=== PATIENT | female | born 1990 | race Caucasian/White ===

== ENCOUNTER 2018-03-23 15:28 | Inpatient (IN) | payer OTHER ==
[~2018-03-23] VITALS: Ht 167.6 cm; Wt 77.1 kg
[2018-03-23 16:56] VITALS: BP 127/76
[2018-03-23] MEDS ORDERED: NALBUPHINE 10 MG/ML AMP IVP PRN (20:10)
[2018-03-23] MEDS ORDERED: PROMETHAZINE 25 MG/ML VIAL IVP PRN (20:10)
[2018-03-23] MEDS ORDERED: MISOPROSTOL 25 MCG TAB VG PRN (20:15)
[2018-03-23] MEDS ORDERED: LACTATED RINGERS 500 ML IV SCH (20:30)
[2018-03-23] MEDS ORDERED: LACTATED RINGERS 1,000 ML IV SCH (20:30)
[2018-03-23] MEDS ORDERED: OXYTOCIN 10 UNITS/ML VIAL IM SCH (21:00)
[2018-03-23] MEDS ORDERED: OXYTOCIN 20 UNITS in LACTATED RINGERS 1,000 ML IV SCH (21:00)
[2018-03-23 21:21] LABS: APPEARANCE,URINE CLEAR (CLEAR); BILIRUBIN,URINE NEGATIVE (NEGATIVE); BLOOD, URINE 3+ (NEGATIVE); COLOR,URINE YELLOW (YELLOW); LEUKOCYTE ESTERASE ,URINE NEGATIVE (NEGATIVE); NITRITE, URINE NEGATIVE (NEGATIVE); PH,URINE 6.5 (5.0-9.0); UGLUCOSE NEGATIVE (NEGATIVE)
[2018-03-23 21:23] LABS: RBC,URINE 20-50 /HPF (0-5); WBC,URINE 0-5 (RARE) /HPF (0-5)
[2018-03-23 21:24] LABS: BASOPHILS % (AUTO) 0.2 % (0.0-2.0); EOSINOPHILS % (AUTO) 0.2 % (0.0-4.0); HEMATOCRIT 38.7 % (36-48); LYMPHOCYTES # (AUTO) 2.5 K/uL (2.5-16.5); LYMPHOCYTES % (AUTO) 28.4 % (20.5-51.1); MEAN CORPUSCULAR HEMOGLOBIN 32 pg (27-31); MEAN CORPUSCULAR HGB CONC 34 g/dL (33-37); MEAN CORPUSCULAR VOLUME 93.8 fL (80-94); MONOCYTES # (AUTO) 0.5 K/uL (0.8-1.0); MONOCYTES % (AUTO) 5.6 % (1.7-9.3); NEUTROPHILS # (AUTO) 5.8 K/uL (1.8-7.7); NEUTROPHILS % (AUTO) 65.6 % (42.2-75.2); PLATELET COUNT (AUTO) 94 K/uL (140-450); RED BLOOD CELL COUNT(AUTO) 4.13 MIL/uL (4.20-5.40); RED CELL DISTRIBUTION WIDTH 13.3 % (11.6-13.7); WHITE BLOOD COUNT (AUTO) 8.9 K/uL (4.8-10.8)
[2018-03-23] MEDS ORDERED: MISOPROSTOL 25 MCG TAB ONE (21:35)
[2018-03-23] MEDS ORDERED: PREN-546 PO (22:46)
[2018-03-24] MEDS ORDERED: MISOPROSTOL 25 MCG TAB ONE (02:13)
[2018-03-24] MEDS ORDERED: OXYTOCIN 20 UNITS/LR PREMIX 1,000 ML IV ONE (02:21)
[2018-03-24] MEDS ORDERED: PROMETHAZINE 25 MG/ML VIAL ONE (02:35)
[2018-03-24] MEDS ORDERED: NALBUPHINE 10 MG/ML AMP ONE (02:35)
[2018-03-24] MEDS ORDERED: OXYTOCIN 10 UNITS/ML VIAL ONE (05:09)
--- NOTE | 2018-03-24 11:28 | NUR ---
PATIENT HAS BEEN SCREENED AND CATEGORIZED LOW NUTRITION RISK. PATIENT WILL BE SEEN WITHIN 7 DAYS OF ADMISSION. 03/30/[address]
[2018-03-24] MEDS ORDERED: OXYTOCIN 10 UNITS/ML VIAL IM PRN (20:10)
[2018-03-24] MEDS ORDERED: IBUPROFEN 800 MG TAB PO PRN (20:10)
[2018-03-24] MEDS ORDERED: MEASLES, MUMPS, AND RUBELLA 1 VIAL SQVAC PRN (20:10)
[2018-03-24] MEDS ORDERED: METHYLERGONOVINE 0.2 MG TAB PO PRN (20:10)
[2018-03-24] MEDS ORDERED: oxyCODONE/APAP 5/325 MG 1 TAB TAB PO PRN (20:10)
[2018-03-24] MEDS ORDERED: BENZOCAINE/MENTHOL 20%-0.5% 60 GM CAN TP PRN (20:10)
[2018-03-24] MEDS ORDERED: HYDROcodone/APAP 5/325 MG 1 TAB TAB PO PRN (20:10)
[2018-03-24] MEDS ORDERED: METHYLERGONOVINE 0.2 MG/ML AMP IM PRN (20:10)
[2018-03-24] MEDS ORDERED: TEMAZEPAM 15 MG CAP PO PRN (20:10)
[2018-03-24] MEDS ORDERED: DOCUSATE SOD/SENNA 50/8.6 MG 1 TAB PO SCH (21:00)
[2018-03-25 06:48] LABS: HEMATOCRIT 36.1 % (36-48); HEMOGLOBIN 12.1 g/dL (12.0-16.0)
[2018-03-25] MEDS ORDERED: DOCUSATE SOD/SENNA 50/8.6 MG 1 TAB PO SCH (21:00)
== END 2018-03-26 14:35 | disposition home or self-care (01) | DRG 560 ==
LOC: MLD 15:28 → UNDOADMOB 15:28 → MLD 15:50 → INTOOBSV 16:55 → OBSVTOIN 16:55 → MLD 19:54 → MFCC 19:54
PROVIDERS: ADMIT Obstetrics & Gynecology; ATTEND Obstetrics & Gynecology
PROC: 10E0XZZ Delivery of Products of Conception, External Approach (ICD-10-PCS; principal; 2018-03-24)
DX: O80 Encounter for full-term uncomplicated delivery (principal); Z37.0 Single live birth; Z3A.39 39 weeks gestation of pregnancy; Z28.82 Immunization not carried out because of caregiver refusal
CPT/HCPCS: 36415; 59409; 76805; 81001; 85018; 85025; 86592; 86886; 86900; 86901; 90715; G0378; J2300; J2550; J2590; J7120; Q0092